=== PATIENT | male | born 1975 | race Caucasian/White ===

== ENCOUNTER 2024-12-15 16:34 | Emergency (ER) | payer OTHER ==
[~2024-12-15] VITALS: Ht 162.6 cm; Wt 74.8 kg
[2024-12-15 16:41] VITALS: BP 135/85; PULSE 69; RESP 16; O2SAT 95
[2024-12-15] MEDS ORDERED: AMOX-117 PO (18:01)
[2024-12-15 18:42] VITALS: TEMP 98
== END 2024-12-15 18:43 | disposition home or self-care (01) ==
LOC: ER 16:35
DX: S51.831A Puncture wound without foreign body of right forearm, initial encounter (principal); Z88.2 Allergy status to sulfonamides; W54.0XXA Bitten by dog, initial encounter; Y93.89 Activity, other specified; Y92.89 Other specified places as the place of occurrence of the external cause; Y99.8 Other external cause status
CPT/HCPCS: 99283; J7030; A6449